=== PATIENT | male | born 1985 | race Caucasian/White ===

== ENCOUNTER 2024-07-19 10:37 | Emergency (ER) | payer OTHER ==
[2024-07-19 10:50] VITALS: BP 128/81; PULSE 67; RESP 18; TEMP 98.6; BMI 25.1
== END 2024-07-19 15:35 | disposition home or self-care (01) ==
LOC: JER 10:37
DX: R09.A2 Foreign body sensation, throat (principal)
CPT/HCPCS: 70360-TC-FY; 70490-TC; 99284-25